=== PATIENT | male | born 1960 | race Caucasian/White ===

== ENCOUNTER 2016-07-15 13:48 | Emergency (ER) | payer BC ==
[2016-07-15] MEDS ORDERED: ASPIRIN 81 MG TABLET, CHEWABLE PO ONE (14:19)
[2016-07-15] MEDS ORDERED: IPRATROPIUM/ALBUTEROL 0.5-2.5 MG/3 ML AMPUL NEB ONE ×2 (14:19→17:20)
[2016-07-15 15:08] LABS: HEMATOCRIT 41.1 % (37.9-51.0); HEMOGLOBIN 13.4 g/dL (13.5-17.0); HGB HCT DIFFERENCE -0.9; MEAN CORPUSCULAR HEMOGLOBIN 29.5 pg (27.0-33.4); MEAN CORPUSCULAR HGB CONC 32.5 g/dL (32.0-36.0); MEAN CORPUSCULAR VOLUME 91 fl (80-97); RED BLOOD COUNT 4.53 10^6/uL (4.35-5.55); RED CELL DISTRIBUTION WIDTH 14.6 % (11.5-14.0); WHITE BLOOD COUNT 21.1 10^3/uL (4.0-10.5)
--- NOTE | 2016-07-15 15:13 | EKG REPORT ---
SEVERITY:- ABNORMAL ECG - SINUS RHYTHM RIGHT BUNDLE BRANCH BLOCK BORDERLINE INFERIOR Q WAVES : Confirmed by: Emani White MD 15-Jul-2016 15:12:49
[2016-07-15 15:25] LABS: BAND NEUTROPHILS % (MANUAL) 4 % (3-5); BASOPHILS % (MANUAL) 2 % (0-2); EOSINOPHILS % (MANUAL) 2 % (0-6); LYMPHOCYTES % (MANUAL) 8 % (13-45); TOTAL CELLS COUNTED 100
[2016-07-15 15:26] LABS: RBC MORPHOLOGY COMMENT NORMO-CYTIC/CHROMIC
[2016-07-15 15:39] LABS: ALANINE AMINOTRANSFERASE 30 U/L (21-72); ALKALINE PHOSPHATASE 68 U/L (38-126); ANION GAP 10 (5-19); ASPARTATE AMINO TRANSFERASE 21 U/L (17-59); BILIRUBIN,TOTAL 0.6 mg/dL (0.2-1.3); BLOOD UREA NITROGEN 21 mg/dL (7-20); CALCIUM 9.2 mg/dL (8.4-10.2); CARBON DIOXIDE 31 mmol/L (22-30); CHLORIDE 98 mmol/L (98-107); CREATINE KINASE 113 U/L (55-170); CREATININE RESULT 0.96 mg/dL (0.52-1.25); GLUCOSE 91 mg/dL (75-110); POTASSIUM 4.5 mmol/L (3.6-5.0); SODIUM 139.2 mmol/L (137-145); TOTAL PROTEIN 7.2 g/dL (6.3-8.2)
--- NOTE | 2016-07-15 15:40 | ER Document Report ---
ED Respiratory Problem - General Mode of Arrival: Ambulatory Information source: Patient TRAVEL OUTSIDE OF THE [place] IN LAST 30 DAYS: No - HPI Patient complains to provider of: Other - congestion Onset: Yesterday Associated symptoms: Other - See above <MEGA SCHILLING - Last Filed: 07/15/16 16:36> <EDDACONNER - Last Filed: 07/15/16 19:28> - General Chief Complaint: Nasal Congestion Stated Complaint: congestion Notes: Patient is a 55 year old male, with a past medical history including CHF and COPD, who presents to the emergency department complaining of nasal congestion. Patient reports he developed a bad cold last night and complains of cough, nausea, and a sore throat that started today. Patient states that he was in the hospital 6 weeks ago for pneumonia. Patient states that he uses home oxygen when needed and at night, he also has breathing treatments at home but has not used them recently, patient denies any breathing difficulties above his normal conditions. Patient also reports that he broke a fever last night. Patient denies diarrhea, vomiting, chest pain, abdominal pain, and edema. Patient currently wears compression socks and takes 2 water pills. PCP: Dr. Darby Huerta (MEGA SCHILLING) - Related Data Allergies/Adverse Reactions: No Known Allergies Allergy (Verified 07/15/16 14:05) Past Medical History - General Information source: Patient - Social History Smoking Status: Former Smoker - 7 years Chew tobacco use (# tins/day): No Frequency of alcohol use: Occasional Drug Abuse: None Family History: Reviewed & Not Pertinent, CAD, DM, Hypertension Patient has suicidal ideation: No Patient has homicidal ideation: No - Past Medical History Cardiac Medical History: Reports: Hx Congestive Heart Failure, Hx Hypertension Pulmonary Medical History: Reports: Hx COPD Endocrine Medical History: Reports: Hx Diabetes Mellitus Type 2 Past Surgical History: Reports: Hx Orthopedic Surgery, Hx Tonsillectomy <MEGA SCHILLING - Last Filed: 07/15/16 16:36> Review of Systems - Review of Systems Constitutional: See HPI, Fever EENT: See HPI, Nose congestion, Throat pain Cardiovascular: denies: Chest pain, Edema Respiratory: See HPI, Cough Gastrointestinal: See HPI, Nausea. denies: Abdominal pain, Diarrhea, Vomiting Genitourinary: No symptoms reported Male Genitourinary: No symptoms reported Musculoskeletal: No symptoms reported Skin: No symptoms reported Hematologic/Lymphatic: No symptoms reported Neurological/Psychological: No symptoms reported -: Yes All other systems reviewed and negative <MEGA SCHILLING - Last Filed: 07/15/16 16:36> Physical Exam - Vital signs Interpretation: Tachycardic - General General appearance: Appears well, Alert - HEENT Head: Normocephalic, Atraumatic Sinus: Other - congested Pharynx: Erythema. No: Exudate, Other - swelling - Respiratory Respiratory status: No respiratory distress Chest status: Nontender Breath sounds: Decreased air movement - of left side. Right side has decreased expiratory movement Chest palpation: Normal - Cardiovascular Rhythm: Tachycardia Heart sounds: Normal auscultation Murmur: No - Abdominal Inspection: Normal Distension: No distension Bowel sounds: Normal Tenderness: Nontender Organomegaly: No organomegaly - Back Back: Normal, Nontender - Neurological Neuro grossly intact: Yes Cognition: Normal Orientation: AAOx4 [place] Coma Scale Eye Opening: Spontaneous [place] Coma Scale Verbal: Oriented [place] Coma Scale Motor: Obeys Commands Na Coma Scale Total: 15 Speech: Normal - Psychological Associated symptoms: Normal affect, Normal mood - Skin Skin Temperature: Warm Skin Moisture: Dry Skin Color: Normal <MEGA SCHILLING - Last Filed: 07/15/16 16:36> <CONNER BAÑUELOS - Last Filed: 07/15/16 19:28> - Vital signs Vitals: Temp Pulse Resp BP Pulse Ox 98.9 F 103 H 22 H 124/66 86 L 07/15/16 13:59 07/15/16 13:59 07/15/16 13:59 07/15/16 13:59 07/15/16 13:59 (MEGA SCHILLING) (CONNER BAÑUELOS) Course - Laboratory Result Diagrams: 07/15/16 14:40 07/15/16 14:40 <MEGA SCHILLING - Last Filed: 07/15/16 16:36> - Laboratory Result Diagrams: 07/15/16 14:40 07/15/16 14:40 <CONNER BAÑUELOS - Last Filed: 07/15/16 19:28> - Re-evaluation Re-evalutation: 07/15/16 19:11 Patient with history of COPD presents stating that last night he started getting nasal congestion and has a little bit of a cough. He also has a history of CHF. He indicates that he just thought he had the sniffles but his wanted him to be checked out. Patient satting 82-86% on room air when he came in. He does have home oxygen. He does have nebulizers and says that he was not using the nebulizer today. The patient workup is largely unremarkable with exception of an elevated white count. In May when he was admitted for the COPD exacerbation and pneumonia, his white count was elevated at 19,000. The patient is afebrile nontoxic appearing. The chest x-ray was normal. He desats to 85 on room air. Again he does have chronic COPD and he says he feels fine. He is not in respiratory distress. We did give him steroids and 2 breathing treatments. I have counseled him regarding using his be breathing treatments at home. He will also use his oxygen 24-7 at 2L until he feels improved. He has been comfortable in the ED and has been asking to go since he got here. Given his history of COPD, and recent pneumonia, we'll treat him empirically with antibiotics. He will monitor for fevers and return for any worrisome or worsening symptoms. 07/15/16 19:25 07/15/16 19:27 (CONNER BAÑUELOS) - Vital Signs Vital signs: Temp Pulse Resp BP Pulse Ox 98.9 F 103 H 21 H 129/72 H 91 L 07/15/16 13:59 07/15/16 13:59 07/15/16 18:00 07/15/16 15:37 07/15/16 18:00 (MEGA SCHILLING) (CONNER BAÑUELOS) - Laboratory Laboratory results interpreted by me: 07/15/16 07/15/16 14:40 14:40 WBC 21.1 H Hgb 13.4 L RDW 14.6 H Lymphocytes % (Manual) 8 L Abs Neuts (Manual) 17.1 H Abs Basophils (Manual) 0.4 H Carbon Dioxide 31 H BUN 21 H (MEGA SCHILLING) (CONNER BAÑUELOS) Discharge <MEGA SCHILLING - Last Filed: 07/15/16 16:36> <CONNER BAÑUELOS - Last Filed: 07/15/16 19:28> - Discharge Clinical Impression: COPD with exacerbation Sinusitis Qualifiers: Sinusitis location: unspecified location Chronicity: acute Recurrence: non- recurrent Qualified Code(s): J01.90 - Acute sinusitis, unspecified Condition: Stable Disposition: HOME, SELF-CARE Instructions: Sinusitis ([facility]), Chronic Obstructive Lung Disease ([facility]) Additional Instructions: Use your nebulizer treatments every 4 hours as needed for difficulty breathing. His your home oxygen until you are feeling improved. Take the steroids as prescribed and try Flonase to help with sinus congestion. Follow-up to on Sunday. Return to emergency department for fevers, vomiting so not to keep down fluids, difficulty breathing, chest pain, or any other worsening or concerning symptoms. Prescriptions: Amox Tr/Potassium Clavulanate [Augmentin 875-125 mg Tablet] 1 tab PO BID #20 tablet Fluticasone Propionate [Flonase Nasal [place] 50 Mcg/[place] 16 gm] 2 sprays NASL Q12 #1 inhaler Prednisone [Deltasone 20 mg Tablet] 3 tab PO DAILY 5 Days Scribe Attestation: 07/15/16 19:27 I personally performed the services described in the documentation, reviewed and edited the documentation which was dictated to the scribe in my presence, and it accurately records my words and actions. (CONNER BAÑUELOS) Scribe Documentation - Scribe Written by Jayshree:: jayshree Walker, 07/15/16, [id number] acting as scribe for :: Dr Hart <MEGA SCHILLING - Last Filed: 07/15/16 16:36>
[2016-07-15 15:54] LABS: CREATINE KINASE MB 0.87 ng/mL (<4.55); TROPONIN I < 0.012 ng/mL
[2016-07-15] MEDS ORDERED: METHYLPREDNISOLONE INJ 125 MG/2 ML SDV IV ONE (17:19)
[2016-07-15] MEDS ORDERED: AMOXICILLIN TR/POT CLAVULANATE 500-125 MG TAB PO ONE (19:25)
[2016-07-15 19:47] VITALS: BP 135/77
== END 2016-07-15 19:52 | disposition home or self-care (01) ==
LOC: ER 13:48
DX: J44.1 Chronic obstructive pulmonary disease with (acute) exacerbation (principal); J01.90 Acute sinusitis, unspecified; I50.9 Heart failure, unspecified; I11.0 Hypertensive heart disease with heart failure; J44.9 Chronic obstructive pulmonary disease, unspecified; E11.9 Type 2 diabetes mellitus without complications; Z87.891 Personal history of nicotine dependence
CPT/HCPCS: 93005; 94640 ×2; 99285; 96374; 36415; 82553; 82550; 85025; 80053; 84484; 83880; 71010; 93010; J2930; J7620

== ENCOUNTER 2017-06-29 15:12 | Inpatient (IN) | payer BC ==
[2017-06-29 17:02] LABS: ABSOLUTE BASOPHILS # (AUTO) 0.1 10^3/uL (0.0-0.2); ABSOLUTE EOSINOPHILS # (AUTO) 0.1 10^3/uL (0.0-0.6); ABSOLUTE LYMPHOCYTES (AUTO) 2.2 10^3/uL (0.5-4.7); ABSOLUTE MONOCYTES (AUTO) 0.9 10^3/uL (0.1-1.4); ABSOLUTE NEUT (AUTO) 7.1 10^3/uL (1.7-8.2); BASOPHILS % (AUTO) 0.5 % (0-2); EOSINOPHILS % (AUTO) 1.4 % (0-6); HEMATOCRIT 37.9 % (37.9-51.0); HEMOGLOBIN 12.3 g/dL (13.5-17.0); LYMPHOCYTES % (AUTO) 21.1 % (13-45); MEAN CORPUSCULAR HEMOGLOBIN 29.4 pg (27.0-33.4); MEAN CORPUSCULAR HGB CONC 32.5 g/dL (32.0-36.0); MEAN CORPUSCULAR VOLUME 90 fl (80-97); MONOCYTES % (AUTO) 8.8 % (3-13); PLATELET COUNT 336 10^3/uL (150-450); RED BLOOD COUNT 4.19 10^6/uL (4.35-5.55); RED CELL DISTRIBUTION WIDTH 14.4 % (11.5-14.0); SEGMENTED NEUTROPHILS % (AUTO) 68.2 % (42-78); TOTAL CELLS COUNTED % (AUTO) 100 %; WHITE BLOOD COUNT 10.4 10^3/uL (4.0-10.5)
--- NOTE | 2017-06-29 17:04 | ER Document Report ---
ED General - General Chief Complaint: Breathing Difficulty Stated Complaint: DIFFICULTY BREATHING Time Seen by Provider: 06/29/17 15:57 Notes: Patient with increased cough, shortness of breath and difficulty breathing. Followed by outpatient doctor for the last several days. Started on Levaquin but not getting better. Went to the office 2 days in a row and got shots of Rocephin. Still having increased work of breathing, wheezing and shortness of breath. Patient states he has intermittent fevers. Has a history of congestive heart failure as well. Primary care doctor was concerned this could be CHF versus pneumonia. Sent here for evaluation. TRAVEL OUTSIDE OF THE [place] IN LAST 30 DAYS: No - HPI Onset: Last week - Related Data Allergies/Adverse Reactions: No Known Allergies Allergy (Verified 06/29/17 15:13) Past Medical History - General Information source: Patient - Social History Smoking Status: Former Smoker Frequency of alcohol use: None Drug Abuse: None Lives with: Family, Spouse/Significant other Family History: Reviewed & Not Pertinent, CAD, DM, Hypertension - Past Medical History Cardiac Medical History: Reports: Hx Congestive Heart Failure, Hx Hypertension Denies: Hx Coronary Artery Disease Pulmonary Medical History: Reports: Hx COPD Endocrine Medical History: Reports: Hx Diabetes Mellitus Type 2 Renal/ Medical History: Denies: Hx Peritoneal Dialysis Past Surgical History: Reports: Hx Orthopedic Surgery, Hx Tonsillectomy Review of Systems - Review of Systems Constitutional: Fever, Weakness EENT: No symptoms reported Cardiovascular: Palpitations Respiratory: Cough, Short of breath, Wheezing Gastrointestinal: No symptoms reported Genitourinary: No symptoms reported Male Genitourinary: No symptoms reported Musculoskeletal: No symptoms reported Skin: No symptoms reported Hematologic/Lymphatic: No symptoms reported Neurological/Psychological: Other - Peripheral neuropathy Physical Exam - Vital signs Vitals: Pulse Ox 93 06/29/17 15:13 Interpretation: Tachycardic, Tachypneic - General General appearance: Appears well, Alert Notes: Obese individual - HEENT Head: Normocephalic, Atraumatic Eyes: Normal Pupils: PERRL - Respiratory Respiratory status: No respiratory distress Chest status: Nontender Breath sounds: Nonproductive cough, Wheezing Chest palpation: Normal - Cardiovascular Rhythm: Tachycardia Heart sounds: Normal auscultation Murmur: No - Abdominal Inspection: Normal Distension: No distension Bowel sounds: Normal Tenderness: Nontender Organomegaly: No organomegaly - Back Back: Normal, Nontender - Extremities General upper extremity: Normal inspection, Nontender, Normal color, Normal ROM , Normal temperature General lower extremity: Normal inspection, Nontender, Edema, Normal color, Normal ROM, Normal temperature, Normal weight bearing, Other - 2+ pitting edema bilateral lower extremities. No: Allen's sign - Neurological Neuro grossly intact: Yes Cognition: Normal Orientation: AAOx4 [place] Coma Scale Eye Opening: Spontaneous [place] Coma Scale Verbal: Oriented Na Coma Scale Motor: Obeys Commands Na Coma Scale Total: 15 Speech: Normal Motor strength normal: LUE, RUE, LLE, RLE Sensory: Normal - Psychological Associated symptoms: Normal affect, Normal mood - Skin Skin Temperature: Warm Skin Moisture: Dry Skin Color: Normal Course - Re-evaluation Re-evalutation: 06/29/17 19:21 Patient with worsening cough and shortness of breath. Already on antibiotics. Will give IV antibiotics, IV steroids, breathing treatments. Will get CTA of the chest. Consulted hospitalist who agrees with admit at this time. - Vital Signs Vital signs: Temp Pulse Resp BP Pulse Ox 98.7 F 107 H 26 H 101/66 94 06/29/17 15:24 06/29/17 15:24 06/29/17 17:01 06/29/17 17:01 06/29/17 17:01 - Laboratory Result Diagrams: 06/29/17 16:11 06/29/17 16:11 Laboratory results interpreted by ky: 06/29/17 06/29/17 16:11 16:11 RBC 4.19 L Hgb 12.3 L RDW 14.4 H Chloride 96 L Carbon Dioxide 37 H BUN 23 H Total Bilirubin < 0.1 L AST 16 L - EKG Interpretation by Mi EKG shows normal: Sinus rhythm, Intervals, QRS Complexes, ST-T Waves Rate: Tachycardia Discharge - Discharge Clinical Impression: Acute bronchitis Qualifiers: Bronchitis organism: unspecified organism Qualified Code(s): J20.9 - Acute bronchitis, unspecified Condition: Good Disposition: ADMITTED INPATIENT Admitting Provider: Hospitalist - Dr. Jackson
[2017-06-29 17:07] LABS: ALANINE AMINOTRANSFERASE 22 U/L (21-72); ALBUMIN 3.6 g/dL (3.5-5.0); ALKALINE PHOSPHATASE 61 U/L (38-126); ANION GAP 7 (5-19); ASPARTATE AMINO TRANSFERASE 16 U/L (17-59); BLOOD UREA NITROGEN 23 mg/dL (7-20); CALCIUM 8.6 mg/dL (8.4-10.2); CARBON DIOXIDE 37 mmol/L (22-30); CHLORIDE 96 mmol/L (98-107); GLUCOSE 95 mg/dL (75-110); POTASSIUM 4.3 mmol/L (3.6-5.0); SODIUM 139.5 mmol/L (137-145); TOTAL PROTEIN 6.7 g/dL (6.3-8.2)
[2017-06-29 17:09] LABS: BILIRUBIN,TOTAL < 0.1 mg/dL (0.2-1.3)
--- NOTE | 2017-06-29 17:24 | RADIOLOGY REPORT (SQ) ---
EXAM DESCRIPTION: CHEST SINGLE VIEW COMPLETED DATE/TIME: 06/29/2017 5:16 pm REASON FOR STUDY: difficulty breathing COMPARISON: 07/15/2016 EXAM PARAMETERS: NUMBER OF VIEWS: One view. TECHNIQUE: Single frontal radiographic view of the chest acquired. RADIATION DOSE: NA LIMITATIONS: None. FINDINGS: LUNGS AND PLEURA: Left perihilar atelectasis. Right basilar atelectasis. MEDIASTINUM AND HILAR STRUCTURES: No masses. Contour normal. HEART AND VASCULAR STRUCTURES: Heart normal in size. Normal vasculature. BONES: No acute findings. HARDWARE: None in the chest. OTHER: No other significant finding. IMPRESSION: Atelectasis. TECHNICAL DOCUMENTATION: JOB ID: [id number] [employer]- All Rights Reserved
[2017-06-29] MEDS ORDERED: IPRATROPIUM/ALBUTEROL 0.5-2.5 MG/3 ML AMPUL NEB ONE (17:35)
[2017-06-29 17:39] LABS: APPEARANCE,URINE CLEAR; BILIRUBIN,URINE NEGATIVE (NEGATIVE); COLOR,URINE YELLOW; GLUCOSE, URINE NEGATIVE (NEGATIVE); KETONES,URINE NEGATIVE (NEGATIVE); LEUKOCYTE ESTERASE,URINE NEGATIVE (NEGATIVE); NITRITE,URINE NEGATIVE (NEGATIVE); PROTEIN,URINE NEGATIVE (NEGATIVE); URINE SPECIFIC GRAVITY 1.005; UROBILINOGEN,URINE NEGATIVE mg/dL (<2.0)
[2017-06-29 17:57] LABS: NT PRO BNP 60 pg/mL (5-900)
[2017-06-29 18:00] LABS: TROPONIN I < 0.012 ng/mL
--- NOTE | 2017-06-29 18:18 | EKG REPORT ---
SEVERITY:- ABNORMAL ECG - SINUS TACHYCARDIA RBBB AND LPFB PROBABLE INFERIOR INFARCT, AGE INDETERMINATE : Confirmed by: Rad Roche MD 29-Jun-2017 18:17:20
[2017-06-29] MEDS ORDERED: CEFTRIAXONE 2 GM/D5W RTU 2 GM/50 ML RTUPB IV ONE (19:17)
[2017-06-29] MEDS ORDERED: METHYLPREDNISOLONE INJ 125 MG/2 ML SDV IV ONE (19:17)
[2017-06-29] MEDS ORDERED: AZITHROMYCIN INJ 500 MG VIAL IV ONE (19:18)
[2017-06-29 20:12] LABS: A TYPE INFLUENZA AG NEGATIVE (NEGATIVE); B INFLUENZA AG NEGATIVE (NEGATIVE)
--- NOTE | 2017-06-29 20:44 | RADIOLOGY REPORT (SQ) ---
EXAM DESCRIPTION: CTA CHEST COMPLETED DATE/TIME: 06/29/2017 8:18 pm REASON FOR STUDY: sob, tachycardia COMPARISON: Chest radiograph CT 05/26/2016 TECHNIQUE: CT scan of the chest performed using helical scanning technique with dynamic intravenous contrast injection. Images reviewed with lung, soft tissue and bone windows. Reconstructed coronal and sagittal MPR images reviewed. Additional 3 dimensional post-processing performed to develop Maximal Intensity Projection images ([place] P). All images stored on PACS. All CT scanners at this facility use dose modulation, iterative reconstruction, and/or weight based d osing when appropriate to reduce radiation dose to as low as reasonably achievable (ALARA). [facility]: Dose Right [facility]: CareDose [facility]: Dose Right [facility]: Teradose 4D [facility]: Haptik CONTRAST TYPE AND DOSE: contrast/concentration: Isovue 370.00 mg/ml; Total Contrast Delivered: 157.0 ml; Total Saline Delivered: 140.0 ml Contrast bolus optimized for the pulmonary arteries. Not diagnostic for the aorta. RENAL FUNCTION: Creatinine 1.2 RADIATION DOSE: CT Rad equipment meets quality standard of care and radiation dose reduction techniq ues were employed. CTDIvol: 51.9 - 93.7 mGy. DLP: 3876 mGy-cm. . LIMITATIONS: None. FINDINGS: LUNGS AND PLEURA: Minimal opacities at the lung bases. Similar to previous. AORTA AND GREAT VESSELS: No aneurysm. Contrast bolus not optimized for the aorta. HEART: No pericardial effusion. No significant coronary artery calcifications. PULMONARY ARTERIES: No emboli visualized in the main pulmonary arteries or the segmental branches. HILAR AND MEDIASTINAL STRUCTURES: No identified masses or abnormal nodes. HARDWARE: None in the chest. UPPER ABDOMEN: Hepatic cysts. THYROID AND OTHER SOFT TISSUES: No masses. No adenopathy. BONES: No acute or significant finding. 3D MIPS: Confirm above findings. OTHER: No other significant finding. IMPRESSION: No pulmonary emboli. Basilar opacities similar to previous in 2016. Hepatic cysts stable. COMMENT: Quality ID # [id number]: Final reports with documentation of one or more dose reduction techniques (e.g., Automated exposure control, adjustment of the mA and/or kV according to patient size, use of iterative reconstruction technique) TECHNICAL DOCUMENTATION: JOB ID: [id number] [employer]- All Rights Reserved
[2017-06-29] MEDS ORDERED: ACETAMINOPHEN 325 MG TABLET PO PRN (21:25)
[2017-06-29] MEDS ORDERED: LEVALBUTEROL HCL NEB 1.25 MG/3 ML AMPUL NEB PRN (21:25)
[2017-06-29] MEDS: CARVEDILOL 3.125 MG TABLET PO SCH (22:38)
[2017-06-29] MEDS: GUAIFENESIN 600 MG TABLET.SA PO SCH (22:39)
[2017-06-29] MEDS: GABAPENTIN 300 MG CAPSULE PO SCH (22:39)
[2017-06-30] MEDS ORDERED: METHYLPREDNISOLONE INJ 40 MG/1 ML SDV IV SCH (03:00)
--- NOTE | 2017-06-30 03:21 | PDOC H&P ---
History of Present Illness Admission Date/PCP: 06/29/2017 History of Present Illness: DOLORES TOMAS is a 56 year old male with past medical history of chronic hypoxemic respiratory failure, congestive heart failure, COPD, hypertension, diabetes mellitus type 2 diet controlled, morbid obesity who presents to the emergency department with shortness of breath. Patient reports she has been to his primary provider 3 times this week for congestion and difficulty breathing. He reports that he was placed on an antibiotic and given steroids in the form shots , but he reveals he is getting worse. He reports his sputum is productive of yellow white sputum. He reports that he has lower extremity swelling but no more than normal. He does report that overall his weight is up since I last saw him approximately [address] in the emergency department reveals no pulmonary embolus but does show bilateral lower lobe pneumonia. For the hospital service for admission Past Medical History Cardiac Medical History: Reports: Congestive Heart Failure, Hyperlipidema, Hypertension Denies: Coronary Artery Disease Pulmonary Medical History: Reports: Chronic Obstructive Pulmonary Disease (COPD) , Respiratory Failure Endocrine Medical History: Reports: Diabetes Mellitus Type 2, Obesity Past Surgical History Past Surgical History: Reports: Orthopedic Surgery, Tonsillectomy Social History Lives with: Family, Spouse/Significant other Smoking Status: Former Smoker Frequency of Alcohol Use: Occasional Hx Recreational Drug Use: No Hx Prescription Drug Abuse: No - Advance Directive Resuscitation Status: Full Code Surrogate healthcare decision maker:: Barbara Tomas, Family History Family History: CAD, DM, Hypertension Parental Family History Reviewed: Yes Children Family History Reviewed: Yes Sibling(s) Family History Reviewed.: Yes Medication/Allergy Allergies/Adverse Reactions: No Known Allergies Allergy (Verified 06/29/17 15:13) Review of Systems Constitutional: PRESENT: chills, fatigue, headache(s), weight gain. ABSENT: fever(s), weight loss Eyes: ABSENT: visual disturbances Ears: ABSENT: hearing changes Cardiovascular: ABSENT: chest pain, dyspnea on exertion, edema, orthropnea, palpitations Respiratory: PRESENT: cough, dyspnea, sputum. ABSENT: hemoptysis Gastrointestinal: PRESENT: dysphagia, heartburn. ABSENT: abdominal pain, constipation, diarrhea, hematemesis, hematochezia, melena, nausea, vomiting Genitourinary: ABSENT: dysuria, hematuria Musculoskeletal: ABSENT: joint swelling Integumentary: ABSENT: rash, wounds Neurological: ABSENT: abnormal gait, abnormal speech, confusion, dizziness, focal weakness, syncope Psychiatric: ABSENT: anxiety, depression, homidical ideation, suicidal ideation Endocrine: ABSENT: cold intolerance, heat intolerance, polydipsia, polyuria Hematologic/Lymphatic: ABSENT: easy bleeding, easy bruising Physical Exam Vital Signs: Temp Pulse Resp BP Pulse Ox 98.7 F 107 H 26 H 101/66 94 06/29/17 15:24 06/29/17 15:24 06/29/17 17:01 06/29/17 17:01 06/29/17 17:01 Intake & Output 06/28/17 06/29/17 06/30/17 06:59 06:59 06:59 Weight 167.6 kg General appearance: PRESENT: mild distress, morbidly obese, well-developed Head exam: PRESENT: atraumatic, normocephalic Eye exam: PRESENT: conjunctiva pink, EOMI, PERRLA. ABSENT: scleral icterus Ear exam: PRESENT: normal external ear exam Mouth exam: PRESENT: moist, tongue midline Neck exam: ABSENT: JVD, lymphadenopathy, thyromegaly, tracheal deviation Respiratory exam: PRESENT: rhonchi, symmetrical, unlabored. ABSENT: accessory muscle use, rales, tachypnea, wheezes Cardiovascular exam: PRESENT: RRR, +S1, +S2. ABSENT: diastolic murmur, rubs, systolic murmur Pulses: PRESENT: normal dorsalis pedis pul Vascular exam: PRESENT: normal capillary refill GI/Abdominal exam: PRESENT: distended, normal bowel sounds, soft. ABSENT: firm , guarding, mass, Reyes's sign, organolmegaly, rebound, rigid, tenderness Rectal exam: PRESENT: deferred Extremities exam: PRESENT: clubbing, full ROM, +1 edema. ABSENT: calf tenderness Neurological exam: PRESENT: alert, awake, oriented to person, oriented to place , oriented to time, oriented to situation, CN II-XII grossly intact. ABSENT: motor sensory deficit Psychiatric exam: PRESENT: appropriate affect, normal mood. ABSENT: homicidal ideation, suicidal ideation Skin exam: PRESENT: dry, intact, warm. ABSENT: cyanosis, rash Results Laboratory Results: 06/29/17 16:11 06/29/17 16:11 06/29/17 06/29/17 06/29/17 16:11 16:11 16:11 WBC 10.4 RBC 4.19 L Hgb 12.3 L Hct 37.9 MCV 90 MCH 29.4 MCHC 32.5 RDW 14.4 H Plt Count 336 Seg Neutrophils % 68.2 Lymphocytes % 21.1 Monocytes % 8.8 Eosinophils % 1.4 Basophils % 0.5 Absolute Neutrophils 7.1 Absolute Lymphocytes 2.2 Absolute Monocytes 0.9 Absolute Eosinophils 0.1 Absolute Basophils 0.1 Sodium 139.5 Potassium 4.3 Chloride 96 L Carbon Dioxide 37 H Anion Gap 7 BUN 23 H Creatinine 1.20 Est GFR ( Amer) > 60 Est GFR (Non-Af Amer) > 60 Glucose 95 Lactic Acid 1.2 Calcium 8.6 Total Bilirubin < 0.1 L AST 16 L ALT 22 Alkaline Phosphatase 61 Total Protein 6.7 Albumin 3.6 Urine Color Urine Appearance Urine pH Ur Specific [place] Urine Protein Urine Glucose (UA) Urine Ketones Urine Blood Urine Nitrite Ur Leukocyte Esterase Urine WBC (Auto) Urine RBC (Auto) 06/29/17 17:17 WBC RBC Hgb Hct MCV MCH MCHC RDW Plt Count Seg Neutrophils % Lymphocytes % Monocytes % Eosinophils % Basophils % Absolute Neutrophils Absolute Lymphocytes Absolute Monocytes Absolute Eosinophils Absolute Basophils Sodium Potassium Chloride Carbon Dioxide Anion Gap BUN Creatinine Est GFR ( Amer) Est GFR (Non-Af Amer) Glucose Lactic Acid Calcium Total Bilirubin AST ALT Alkaline Phosphatase Total Protein Albumin Urine Color YELLOW Urine Appearance CLEAR Urine pH 5.0 Ur Specific [place] 1.005 Urine Protein NEGATIVE Urine Glucose (UA) NEGATIVE Urine Ketones NEGATIVE Urine Blood NEGATIVE Urine Nitrite NEGATIVE Ur Leukocyte Esterase NEGATIVE Urine WBC (Auto) 1 Urine RBC (Auto) 1 06/29/17 16:11 Troponin I < 0.012 NT-Pro-B Natriuret Pep 60 Impressions: Chest X-Ray 06/29/17 16:54 IMPRESSION: Atelectasis. Assessment & Plan - Diagnosis (1) COPD exacerbation Is this a current diagnosis for this admission?: Yes Plan: Place patient on scheduled nebulized treatments and re-evaluate for improvement. PRN Xopenex Place patient on IV Solu-Medrol Obtain sputum culture (2) Community acquired pneumonia Qualifiers: Laterality: unspecified laterality Qualified Code(s): J18.9 - Pneumonia, unspecified organism Is this a current diagnosis for this admission?: Yes Plan: Place patient on treatment for community-acquired pneumonia with Rocephin and azithromycin. Obtain sputum culture (3) Acute and chronic respiratory failure with hypoxia Is this a current diagnosis for this admission?: Yes Plan: Patient chronically uses 2 L of oxygen at home and is currently requiring 3-4 (4) Diabetes mellitus, type II Qualifiers: Diabetes mellitus complication status: with kidney complications Diabetes mellitus complication detail: with microalbuminuria Diabetes mellitus fpc insulin use: without terminal makeup operator use Qualified Code(s): E11.29 - Type 2 diabetes mellitus with other diabetic kidney complication Is this a current diagnosis for this admission?: Yes Plan: Patient has diet-controlled diabetes mellitus and has been taken off of metformin for him (5) Hyperlipidemia LDL goal <70 Is this a current diagnosis for this admission?: Yes (6) Hypertension Qualifiers: Hypertension type: essential hypertension Qualified Code(s): I10 - Essential (primary) hypertension Is this a current diagnosis for this admission?: Yes (7) Morbid obesity Is this a current diagnosis for this admission?: Yes - Time Time Spent: 30 to 50 Minutes Medications reviewed and adjusted accordingly: Yes - Inpatient Certification Based on my medical assessment, after consideration of the patient's comorbidities, presenting symptoms, or acuity I expect that the services needed warrant INPATIENT care.: Yes I certify that my determination is in accordance with my understanding of Medicare's requirements for reasonable and necessary INPATIENT services [42 CFR 412.3e].: Yes Medical Necessity: Need for Nebulizer Therapy and Monitoring of Response, Need for IV Antibiotics Post Hospital Care: D/C Water Regulator And Valve Repairer Documentation
[2017-06-30 05:18] LABS: ABSOLUTE BASOPHILS # (AUTO) 0.1 10^3/uL (0.0-0.2); ABSOLUTE LYMPHOCYTES (AUTO) 0.7 10^3/uL (0.5-4.7); ABSOLUTE MONOCYTES (AUTO) 0.1 10^3/uL (0.1-1.4); ABSOLUTE NEUT (AUTO) 9.9 10^3/uL (1.7-8.2); BASOPHILS % (AUTO) 0.6 % (0-2); HEMATOCRIT 39.4 % (37.9-51.0); HEMOGLOBIN 12.9 g/dL (13.5-17.0); LYMPHOCYTES % (AUTO) 6.3 % (13-45); MEAN CORPUSCULAR HEMOGLOBIN 29.7 pg (27.0-33.4); MEAN CORPUSCULAR HGB CONC 32.8 g/dL (32.0-36.0); MEAN CORPUSCULAR VOLUME 91 fl (80-97); MONOCYTES % (AUTO) 1.3 % (3-13); PLATELET COUNT 325 10^3/uL (150-450); RED BLOOD COUNT 4.34 10^6/uL (4.35-5.55); RED CELL DISTRIBUTION WIDTH 14.2 % (11.5-14.0); SEGMENTED NEUTROPHILS % (AUTO) 91.8 % (42-78); TOTAL CELLS COUNTED % (AUTO) 100 %; WHITE BLOOD COUNT 10.8 10^3/uL (4.0-10.5)
[2017-06-30 05:48] LABS: ANION GAP 9 (5-19); BLOOD UREA NITROGEN 23 mg/dL (7-20); CALCIUM 8.9 mg/dL (8.4-10.2); CARBON DIOXIDE 35 mmol/L (22-30); CHLORIDE 98 mmol/L (98-107); GLUCOSE 178 mg/dL (75-110); POTASSIUM 5.2 mmol/L (3.6-5.0); SODIUM 141.9 mmol/L (137-145)
[2017-06-30] MEDS: LANSOPRAZOLE 15 MG TAB.RAP.DR PO SCH (07:22)
[2017-06-30] MEDS: GABAPENTIN 300 MG CAPSULE PO SCH ×3 (07:22→20:22)
[2017-06-30] MEDS: IPRATROPIUM/ALBUTEROL 0.5-2.5 MG/3 ML AMPUL NEB SCH ×4 (08:28→19:44)
--- NOTE | 2017-06-30 09:28 | PDOC PROGRESS REPORT ---
Subjective Progress Note for:: 06/30/17 Subjective:: Patient relates that he came to the hospital because his doctor asked him to since he has been at his office 3 times this past week. He admits having a history of sleep apnea but does not use the CPAP machine. He wants to go home. Reason For Visit: FAILURE OF OUTPATIENT THERAPY, PNEUMONIA, COPD Physical Exam Vital Signs: Temp Pulse Resp BP Pulse Ox 98.7 F 107 H 17 134/85 H 92 06/29/17 15:24 06/29/17 15:24 06/30/17 07:53 06/30/17 07:53 06/30/17 07:53 General appearance: PRESENT: no acute distress, morbidly obese Head exam: PRESENT: atraumatic, normocephalic Eye exam: PRESENT: conjunctiva pink, EOMI, PERRLA Ear exam: PRESENT: normal external ear exam Mouth exam: PRESENT: moist Teeth exam: PRESENT: poor dentation Neck exam: PRESENT: full ROM. ABSENT: JVD, tenderness Respiratory exam: PRESENT: clear to auscultation benito Cardiovascular exam: PRESENT: RRR. ABSENT: systolic murmur Vascular exam: PRESENT: normal capillary refill GI/Abdominal exam: PRESENT: normal bowel sounds, soft. ABSENT: tenderness Extremities exam: PRESENT: full ROM, pedal edema, +2 edema. ABSENT: joint swelling Neurological exam: PRESENT: alert, awake, oriented to person, oriented to place , oriented to time, CN II-XII grossly intact - Appears to be upset since still hospitalized. Argumentative Psychiatric exam: PRESENT: other Results Laboratory Results: 06/30/17 05:05 06/30/17 05:05 06/30/17 06/30/17 05:05 05:05 WBC 10.8 H RBC 4.34 L Hgb 12.9 L Hct 39.4 MCV 91 MCH 29.7 MCHC 32.8 RDW 14.2 H Plt Count 325 Seg Neutrophils % 91.8 H Lymphocytes % 6.3 L Monocytes % 1.3 L Eosinophils % 0.0 Basophils % 0.6 Absolute Neutrophils 9.9 H Absolute Lymphocytes 0.7 Absolute Monocytes 0.1 Absolute Eosinophils 0.0 Absolute Basophils 0.1 Sodium 141.9 Potassium 5.2 H Chloride 98 Carbon Dioxide 35 H Anion Gap 9 BUN 23 H Creatinine 0.91 Est GFR ( Amer) > 60 Est GFR (Non-Af Amer) > 60 Glucose 178 H Calcium 8.9 Impressions: Chest X-Ray 06/29/17 16:54 IMPRESSION: Atelectasis. Chest/Abdomen CTA 06/29/17 19:19 IMPRESSION: No pulmonary emboli. Basilar opacities similar to previous in 2016. Hepatic cysts stable. Assessment & Plan - Diagnosis (1) Acute and chronic respiratory failure with hypoxia Is this a current diagnosis for this admission?: Yes Plan: Improved. Patient reluctant to use BiPAP (2) COPD exacerbation Is this a current diagnosis for this admission?: Yes Plan: Will decrease frequency of IV steroids. To discontinue Rocephin and Zithromax IV. To place patient on Zithromax oral (3) Acute congestive heart failure Qualifiers: Congestive heart failure type: diastolic Qualified Code(s): I50.31 - Acute diastolic (congestive) heart failure Is this a current diagnosis for this admission?: Yes Plan: . To discontinue Lasix p.o. and placed on IV. Suspect pulmonary hypertension (4) Community acquired pneumonia Qualifiers: Laterality: unspecified laterality Qualified Code(s): J18.9 - Pneumonia, unspecified organism Is this a current diagnosis for this admission?: No Plan: Ruled out. Opacity is demonstrated in chest x-ray are similar to [address] of the chest (5) Diabetes mellitus, type II Is this a current diagnosis for this admission?: Yes Plan: Continue present management (6) Sleep apnea Qualifiers: Sleep apnea type: obstructive Qualified Code(s): G47.33 - Obstructive sleep apnea (adult) (pediatric) Is this a current diagnosis for this admission?: Yes Plan: Patient does not use CPAP and likely major contributor to his presentation
[2017-06-30] MEDS ORDERED: FUROSEMIDE 40 MG TABLET PO SCH (10:00)
[2017-06-30] MEDS ORDERED: CEFTRIAXONE 1 GM/D5W RTU 1 GM/50 ML RTUPB IV SCH (10:00)
[2017-06-30] MEDS ORDERED: LISINOPRIL 10 MG TABLET PO SCH (10:00)
[2017-06-30] MEDS: ENOXAPARIN SODIUM INJ 40 MG/0.4 ML DISP.SYRIN SUBCUT SCH (10:50)
[2017-06-30] MEDS: GUAIFENESIN 600 MG TABLET.SA PO SCH ×2 (10:51→20:22)
[2017-06-30] MEDS: CARVEDILOL 3.125 MG TABLET PO SCH ×2 (10:51→23:52)
[2017-06-30] MEDS ORDERED: FUROSEMIDE INJ/PF 20 MG/2 ML SDV IV ONE (11:00)
[2017-06-30] MEDS ORDERED: FUROSEMIDE INJ/PF 40 MG/4 ML SDV IV ONE (12:00)
[2017-06-30] MEDS: METHYLPREDNISOLONE INJ 40 MG/1 ML SDV IV SCH ×2 (14:09→20:22)
[2017-06-30] MEDS: AZITHROMYCIN 250 MG TABLET PO SCH (17:43)
[2017-06-30] MEDS ORDERED: AZITHROMYCIN 500 MG in DEXTROSE 5%-WATER 250 ML IV SCH (18:00)
[2017-06-30] MEDS: ACETAMINOPHEN WITH CODEINE #3 TABLET PO PRN (19:31)
[2017-06-30] MEDS ORDERED: FUROSEMIDE INJ/PF 40 MG/4 ML SDV IV SCH (22:00)
[2017-06-30] MEDS ORDERED: FUROSEMIDE INJ/PF 20 MG/2 ML SDV IV SCH (22:00)
[2017-07-01] MEDS: LANSOPRAZOLE 15 MG TAB.RAP.DR PO SCH (05:38)
[2017-07-01] MEDS: GABAPENTIN 300 MG CAPSULE PO SCH ×3 (05:39→22:47)
[2017-07-01] MEDS: METHYLPREDNISOLONE INJ 40 MG/1 ML SDV IV SCH (05:39)
[2017-07-01 06:58] LABS: ANION GAP 10 (5-19); BLOOD UREA NITROGEN 33 mg/dL (7-20); CALCIUM 9.2 mg/dL (8.4-10.2); CARBON DIOXIDE 35 mmol/L (22-30); CHLORIDE 98 mmol/L (98-107); GLUCOSE 142 mg/dL (75-110); MAGNESIUM 2.1 mg/dL (1.6-2.3); POTASSIUM 5.3 mmol/L (3.6-5.0); SODIUM 143.4 mmol/L (137-145)
[2017-07-01] MEDS: IPRATROPIUM/ALBUTEROL 0.5-2.5 MG/3 ML AMPUL NEB SCH (08:30)
[2017-07-01] MEDS ORDERED: SODIUM POLYSTYRENE SULFONATE 15 GM/60 ML PO ONE (09:00)
[2017-07-01] MEDS: CARVEDILOL 3.125 MG TABLET PO SCH ×2 (09:23→22:47)
[2017-07-01] MEDS: GUAIFENESIN 600 MG TABLET.SA PO SCH ×2 (09:24→22:41)
[2017-07-01] MEDS: ENOXAPARIN SODIUM INJ 40 MG/0.4 ML DISP.SYRIN SUBCUT SCH (09:24)
[2017-07-01] MEDS ORDERED: PREDNISONE 20 MG TABLET PO SCH (10:00)
--- NOTE | 2017-07-01 10:32 | PDOC PROGRESS REPORT ---
Subjective Progress Note for:: 07/01/17 Subjective:: Patient does not voice any concerns however he does not state whether he is feeling better or not. Respiratory therapy reports that patient had been refusing consistently BiPAP as well as nebulizer treatment. The same is reported by nurse Review of systems All organ systems evaluated and negative All laboratories and significant diagnostics have been reviewed Reason For Visit: FAILURE OF OUTPATIENT THERAPY, PNEUMONIA, COPD Physical Exam Vital Signs: Temp Pulse Resp BP Pulse Ox 97.3 F 101 H 20 102/63 88 L 07/01/17 07:58 07/01/17 07:58 07/01/17 07:58 07/01/17 07:58 07/01/17 07:58 Intake & Output 06/30/17 07/01/17 07/02/17 06:59 06:59 06:59 Intake Total 880 Output Total 2100 Balance -1220 Weight 168.1 kg General appearance: PRESENT: no acute distress, morbidly obese Head exam: PRESENT: atraumatic, normocephalic Eye exam: PRESENT: EOMI, PERRLA Ear exam: PRESENT: normal external ear exam Mouth exam: PRESENT: moist Neck exam: PRESENT: full ROM. ABSENT: JVD, tenderness Respiratory exam: PRESENT: clear to auscultation benito Cardiovascular exam: PRESENT: RRR. ABSENT: diastolic murmur, systolic murmur Vascular exam: PRESENT: normal capillary refill GI/Abdominal exam: PRESENT: normal bowel sounds, soft. ABSENT: tenderness Extremities exam: PRESENT: pedal edema. ABSENT: joint swelling Musculoskeletal exam: PRESENT: full ROM Neurological exam: PRESENT: alert, awake, oriented to person, oriented to place , oriented to time, CN II-XII grossly intact Psychiatric exam: PRESENT: appropriate affect, normal mood Results Laboratory Results: 06/30/17 05:05 07/01/17 05:26 07/01/17 05:26 Sodium 143.4 Potassium 5.3 H Chloride 98 Carbon Dioxide 35 H Anion Gap 10 BUN 33 H Creatinine 0.98 Est GFR ( Amer) > 60 Est GFR (Non-Af Amer) > 60 Glucose 142 H Calcium 9.2 Magnesium 2.1 Impressions: Chest X-Ray 06/29/17 16:54 IMPRESSION: Atelectasis. Chest/Abdomen CTA 06/29/17 19:19 IMPRESSION: No pulmonary emboli. Basilar opacities similar to previous in 2016. Hepatic cysts stable. Assessment & Plan - Diagnosis (1) Acute and chronic respiratory failure with hypoxia Is this a current diagnosis for this admission?: Yes Plan: Stable. Patient reluctant to use BiPAP (2) COPD exacerbation Is this a current diagnosis for this admission?: Yes Plan: To discontinue IV steroids and change to oral.. To add daliresp, advair and spiriva. Continue zithromax (3) Acute congestive heart failure Qualifiers: Congestive heart failure type: diastolic Qualified Code(s): I50.31 - Acute diastolic (congestive) heart failure Is this a current diagnosis for this admission?: Yes Plan: . To discontinue Lasix intravenously. Suspect pulmonary hypertension. Discontinue CHEMA due to hyperkalemia and place on norvasc. Hold diuretic due to increase of BUN (4) Community acquired pneumonia Qualifiers: Laterality: unspecified laterality Qualified Code(s): J18.9 - Pneumonia, unspecified organism Is this a current diagnosis for this admission?: No Plan: Ruled out. Opacity is demonstrated in chest x-ray are similar to [address] of the chest (5) Diabetes mellitus, type II Qualifiers: Diabetes mellitus complication status: with kidney complications Diabetes mellitus complication detail: with microalbuminuria Diabetes mellitus intermediate project manager insulin use: without custodial use Qualified Code(s): E11.29 - Type 2 diabetes mellitus with other diabetic kidney complication; R80.9 - Proteinuria, unspecified; R80.9 - Proteinuria, unspecified Is this a current diagnosis for this admission?: Yes Plan: Continue present management (6) Sleep apnea Qualifiers: Sleep apnea type: obstructive Qualified Code(s): G47.33 - Obstructive sleep apnea (adult) (pediatric) Is this a current diagnosis for this admission?: Yes Plan: Patient does not use CPAP and likely major contributor to his presentation (7) Hyperkalemia Is this a current diagnosis for this admission?: Yes Plan: Likely due to CHEMA inhibitor therapy. Will discontinue lisinopril. To order a one-time dose of Kayexalate (8) Atelectasis of both lungs Is this a current diagnosis for this admission?: Yes Plan: Chronic finding backdated to 2016 - Time Time Spent with patient: 15-24 minutes Medications reviewed and adjusted accordingly: Yes Anticipated discharge: Home Within: within 48 hours - Inpatient Certification Based on my medical assessment, after consideration of the patient's comorbidities, presenting symptoms, or acuity I expect that the services needed warrant INPATIENT care.: Yes I certify that my determination is in accordance with my understanding of Medicare's requirements for reasonable and necessary INPATIENT services [42 CFR 412.3e].: Yes Medical Necessity: Significant Comorbidiites Make Outpatient Treatment Too Risky , Risk of Complication if Not Cared For in Hospital
[2017-07-01] MEDS: AMLODIPINE BESYLATE 2.5 MG TABLET PO SCH (10:53)
[2017-07-01] MEDS: ROFLUMILAST 500 MCG TABLET PO SCH (10:53)
[2017-07-01] MEDS ORDERED: TIOTROPIUM BROMIDE DPI 5 CAP/KIT (18 MCG/CAP) IH ONE (11:00)
[2017-07-01] MEDS ORDERED: FLUTICASONE/SALMETEROL DISKUS 500-50 MCG/DOSE IH ONE (11:00)
[2017-07-01] MEDS: ACETAMINOPHEN WITH CODEINE #3 TABLET PO PRN ×2 (14:03→22:46)
[2017-07-01] MEDS: AZITHROMYCIN 250 MG TABLET PO SCH (17:41)
[2017-07-01] MEDS: FLUTICASONE/SALMETEROL DISKUS 500-50 MCG/DOSE IH SCH (22:47)
[2017-07-02 04:53] LABS: ABSOLUTE BASOPHILS # (AUTO) 0.1 10^3/uL (0.0-0.2); ABSOLUTE LYMPHOCYTES (AUTO) 1.7 10^3/uL (0.5-4.7); ABSOLUTE MONOCYTES (AUTO) 1.2 10^3/uL (0.1-1.4); ABSOLUTE NEUT (AUTO) 13.2 10^3/uL (1.7-8.2); BASOPHILS % (AUTO) 0.3 % (0-2); HEMATOCRIT 36.9 % (37.9-51.0); HEMOGLOBIN 12.2 g/dL (13.5-17.0); LYMPHOCYTES % (AUTO) 10.4 % (13-45); MEAN CORPUSCULAR HEMOGLOBIN 29.7 pg (27.0-33.4); MEAN CORPUSCULAR HGB CONC 33.2 g/dL (32.0-36.0); MEAN CORPUSCULAR VOLUME 89 fl (80-97); MONOCYTES % (AUTO) 7.6 % (3-13); PLATELET COUNT 326 10^3/uL (150-450); RED BLOOD COUNT 4.13 10^6/uL (4.35-5.55); RED CELL DISTRIBUTION WIDTH 14.3 % (11.5-14.0); SEGMENTED NEUTROPHILS % (AUTO) 81.7 % (42-78); TOTAL CELLS COUNTED % (AUTO) 100 %; WHITE BLOOD COUNT 16.2 10^3/uL (4.0-10.5)
[2017-07-02 05:13] LABS: ANION GAP 7 (5-19); BLOOD UREA NITROGEN 39 mg/dL (7-20); CALCIUM 8.9 mg/dL (8.4-10.2); CARBON DIOXIDE 36 mmol/L (22-30); CHLORIDE 98 mmol/L (98-107); GLUCOSE 104 mg/dL (75-110); MAGNESIUM 2.2 mg/dL (1.6-2.3); POTASSIUM 4.6 mmol/L (3.6-5.0); SODIUM 141.3 mmol/L (137-145)
[2017-07-02] MEDS: LANSOPRAZOLE 15 MG TAB.RAP.DR PO SCH (06:02)
[2017-07-02] MEDS: GABAPENTIN 300 MG CAPSULE PO SCH ×3 (06:02→22:02)
[2017-07-02] MEDS ORDERED: NORMAL SALINE 500 ML IV PRN (08:40)
[2017-07-02] MEDS ORDERED: LEVALBUTEROL HCL NEB 1.25 MG/3 ML AMPUL NEB PRN (09:00)
--- NOTE | 2017-07-02 09:54 | PDOC PROGRESS REPORT ---
Subjective Progress Note for:: 07/02/17 Subjective:: Patient again complains of not wanting to be here. Patient has been advised that he is not ready to be discharged. However is his right to leave AGAINST MEDICAL ADVICE or he can always refuse for him to be admitted. Review of systems All organ systems evaluated and negative All laboratories and significant diagnostics have been reviewed Reason For Visit: FAILURE OF OUTPATIENT THERAPY, PNEUMONIA, COPD Physical Exam Vital Signs: Temp Pulse Resp BP Pulse Ox 97.3 F 106 H 18 115/55 L 92 07/01/17 23:47 07/01/17 23:47 07/01/17 23:47 07/01/17 23:47 07/01/17 23:47 Intake & Output 07/01/17 07/02/17 07/03/17 06:59 06:59 06:59 Intake Total 880 1142 Output Total 2100 Balance -1220 1142 Weight 168.1 kg 168.1 kg General appearance: PRESENT: no acute distress, morbidly obese Head exam: PRESENT: atraumatic, normocephalic Eye exam: PRESENT: conjunctiva pink, EOMI, PERRLA Ear exam: PRESENT: normal external ear exam Mouth exam: PRESENT: moist Neck exam: PRESENT: full ROM - Essentially clear to auscultation with soft basilar crackles. ABSENT: JVD Cardiovascular exam: PRESENT: RRR. ABSENT: diastolic murmur, systolic murmur Vascular exam: PRESENT: normal capillary refill GI/Abdominal exam: PRESENT: normal bowel sounds, soft. ABSENT: tenderness Extremities exam: PRESENT: full ROM, pedal edema, +1 edema Musculoskeletal exam: PRESENT: ambulatory Neurological exam: PRESENT: alert, oriented to person, oriented to place, oriented to time, CN II-XII grossly intact Psychiatric exam: PRESENT: unusual affect Skin exam: PRESENT: normal color Results Laboratory Results: 07/02/17 03:52 07/02/17 03:52 07/02/17 07/02/17 03:52 03:52 WBC 16.2 H RBC 4.13 L Hgb 12.2 L Hct 36.9 L MCV 89 MCH 29.7 MCHC 33.2 RDW 14.3 H Plt Count 326 Seg Neutrophils % 81.7 H Lymphocytes % 10.4 L Monocytes % 7.6 Eosinophils % 0.0 Basophils % 0.3 Absolute Neutrophils 13.2 H Absolute Lymphocytes 1.7 Absolute Monocytes 1.2 Absolute Eosinophils 0.0 Absolute Basophils 0.1 Sodium 141.3 Potassium 4.6 Chloride 98 Carbon Dioxide 36 H Anion Gap 7 BUN 39 H Creatinine 1.05 Est GFR ( Amer) > 60 Est GFR (Non-Af Amer) > 60 Glucose 104 Calcium 8.9 Magnesium 2.2 Impressions: Chest X-Ray 06/29/17 16:54 IMPRESSION: Atelectasis. Chest/Abdomen CTA 06/29/17 19:19 IMPRESSION: No pulmonary emboli. Basilar opacities similar to previous in 2016. Hepatic cysts stable. Assessment & Plan - Diagnosis (1) Acute and chronic respiratory failure with hypoxia Is this a current diagnosis for this admission?: Yes Plan: Stable. Patient reluctant to use BiPAP (2) COPD exacerbation Is this a current diagnosis for this admission?: Yes Plan: Continue down the legs, Spiriva, Advair and Zithromax. To discontinue steroids since leukocytosis. (3) Acute congestive heart failure Qualifiers: Congestive heart failure type: diastolic Qualified Code(s): I50.31 - Acute diastolic (congestive) heart failure Is this a current diagnosis for this admission?: Yes Plan: Continue Norvasc and to hold diuretic due to increased BUN. Will order a normal saline 500 mL bolus and will trend renal (4) Community acquired pneumonia Qualifiers: Laterality: unspecified laterality Qualified Code(s): J18.9 - Pneumonia, unspecified organism Is this a current diagnosis for this admission?: No Plan: Ruled out. Opacities demonstrated in chest x-ray are similar to [address] of the chest (5) Diabetes mellitus, type II Qualifiers: Diabetes mellitus complication status: with kidney complications Diabetes mellitus complication detail: with microalbuminuria Diabetes mellitus fdc insulin use: without fdc use Qualified Code(s): E11.29 - Type 2 diabetes mellitus with other diabetic kidney complication; R80.9 - Proteinuria, unspecified; R80.9 - Proteinuria, unspecified Is this a current diagnosis for this admission?: Yes Plan: Continue present management (6) Sleep apnea Qualifiers: Sleep apnea type: obstructive Qualified Code(s): G47.33 - Obstructive sleep apnea (adult) (pediatric) Is this a current diagnosis for this admission?: Yes Plan: Patient does not use CPAP and likely major contributor to his presentation (7) Hyperkalemia Is this a current diagnosis for this admission?: Yes Plan: Likely due to CHEMA inhibitor therapy. Resolved and to continue holding CHEMA inhibitor (8) Atelectasis of both lungs Is this a current diagnosis for this admission?: Yes Plan: Chronic finding backdated to 2016 (9) Elevated BUN Is this a current diagnosis for this admission?: Yes Plan: Hemoglobin has remained stable. Will order stool for occult blood. May be due to volume contraction and to order 500 mL's normal saline bolus. Will continue DVT prophylaxis since hemoglobin stable. Trend renal - Time Time Spent with patient: 15-24 minutes Medications reviewed and adjusted accordingly: Yes - Inpatient Certification Based on my medical assessment, after consideration of the patient's comorbidities, presenting symptoms, or acuity I expect that the services needed warrant INPATIENT care.: Yes I certify that my determination is in accordance with my understanding of Medicare's requirements for reasonable and necessary INPATIENT services [42 CFR 412.3e].: Yes Medical Necessity: Significant Comorbidiites Make Outpatient Treatment Too Risky , Need Close Monitoring Due to Risk of Patient Decompensation
[2017-07-02] MEDS ORDERED: TIOTROPIUM BROMIDE DPI 5 CAP/KIT (18 MCG/CAP) IH SCH (10:00)
[2017-07-02] MEDS: FLUTICASONE/SALMETEROL DISKUS 500-50 MCG/DOSE IH SCH ×2 (10:21→22:02)
[2017-07-02] MEDS: ROFLUMILAST 500 MCG TABLET PO SCH (10:22)
[2017-07-02] MEDS: GUAIFENESIN 600 MG TABLET.SA PO SCH ×2 (10:22→22:02)
[2017-07-02] MEDS: AMLODIPINE BESYLATE 2.5 MG TABLET PO SCH (10:23)
[2017-07-02] MEDS: CARVEDILOL 3.125 MG TABLET PO SCH ×2 (10:24→22:02)
[2017-07-02] MEDS: ENOXAPARIN SODIUM INJ 40 MG/0.4 ML DISP.SYRIN SUBCUT SCH (10:24)
[2017-07-02] MEDS: AZITHROMYCIN 250 MG TABLET PO SCH (17:17)
[2017-07-02] MEDS: ACETAMINOPHEN WITH CODEINE #3 TABLET PO PRN (23:11)
[2017-07-03 05:06] LABS: ABSOLUTE EOSINOPHILS # (AUTO) 0.1 10^3/uL (0.0-0.6); ABSOLUTE LYMPHOCYTES (AUTO) 2.5 10^3/uL (0.5-4.7); ABSOLUTE MONOCYTES (AUTO) 0.8 10^3/uL (0.1-1.4); ABSOLUTE NEUT (AUTO) 7.5 10^3/uL (1.7-8.2); BASOPHILS % (AUTO) 0.4 % (0-2); EOSINOPHILS % (AUTO) 0.5 % (0-6); HEMATOCRIT 37.6 % (37.9-51.0); HEMOGLOBIN 12.3 g/dL (13.5-17.0); LYMPHOCYTES % (AUTO) 22.7 % (13-45); MEAN CORPUSCULAR HEMOGLOBIN 29.4 pg (27.0-33.4); MEAN CORPUSCULAR HGB CONC 32.7 g/dL (32.0-36.0); MEAN CORPUSCULAR VOLUME 90 fl (80-97); MONOCYTES % (AUTO) 6.9 % (3-13); PLATELET COUNT 289 10^3/uL (150-450); RED BLOOD COUNT 4.18 10^6/uL (4.35-5.55); RED CELL DISTRIBUTION WIDTH 14.6 % (11.5-14.0); SEGMENTED NEUTROPHILS % (AUTO) 69.5 % (42-78); TOTAL CELLS COUNTED % (AUTO) 100 %; WHITE BLOOD COUNT 10.8 10^3/uL (4.0-10.5)
[2017-07-03] MEDS: GABAPENTIN 300 MG CAPSULE PO SCH (05:13)
[2017-07-03 05:25] LABS: ANION GAP 7 (5-19); BLOOD UREA NITROGEN 32 mg/dL (7-20); CALCIUM 8.9 mg/dL (8.4-10.2); CARBON DIOXIDE 36 mmol/L (22-30); CHLORIDE 100 mmol/L (98-107); GLUCOSE 83 mg/dL (75-110); MAGNESIUM 2.1 mg/dL (1.6-2.3); POTASSIUM 4.7 mmol/L (3.6-5.0)
[2017-07-03] MEDS ORDERED: LANSOPRAZOLE 15 MG TAB.RAP.DR PO SCH (06:00)
[2017-07-03 08:46] VITALS: BP 119/63
--- NOTE | 2017-07-03 15:33 | PDOC DISCHARGE SUMMARY ---
General - Admit/Disc Date/PCP Admission Date/Primary Care Provider: 06/29/17 21:46 Discharge Date: 07/03/17 - Discharge Diagnosis (1) Acute and chronic respiratory failure with hypoxia Is this a current diagnosis for this admission?: Yes (2) COPD exacerbation Is this a current diagnosis for this admission?: Yes (3) Community acquired pneumonia Is this a current diagnosis for this admission?: No (4) Diabetes mellitus, type II Is this a current diagnosis for this admission?: Yes (5) Sleep apnea Is this a current diagnosis for this admission?: Yes (6) Hyperkalemia Is this a current diagnosis for this admission?: Yes (7) Atelectasis of both lungs Is this a current diagnosis for this admission?: Yes (8) Elevated BUN Is this a current diagnosis for this admission?: Yes (9) Morbid obesity with BMI of 50.0-59.9, adult Is this a current diagnosis for this admission?: Yes (10) Non compliance with medical treatment Is this a current diagnosis for this admission?: Yes (11) Acute on chronic diastolic CHF (congestive heart failure) Is this a current diagnosis for this admission?: Yes - Additional Information Resuscitation Status: Full Code Discharge Diet: Cardiac Discharge Activity: Activity As Tolerated, Balance Activity w/Rest, Energy Conservation, Weigh Daily Prescriptions: Amlodipine Besylate [Norvasc 2.5 mg Tablet] 2.5 mg PO DAILY #30 tablet Guaifenesin [Mucinex Sr 600 mg Tablet.sa] 1,200 mg PO Q12 #60 tablet.sa Tiotropium Lennox [Spiriva Handihaler 5 Cap/Kit (18 Mcg/Cap)] 1 cap IH DAILY 30 Days #30 kit Home Medications: Amitriptyline HCl [Elavil 25 mg Tablet] 25 mg PO QHS 06/30/17 Budesonide/Formoterol Fumarate [Symbicort HFA 160-4.5 mcg Inhaler 6 gm] 1 puff IH Q12 06/30/17 Carvedilol [Coreg 3.125 mg Tablet] 3.125 mg PO Q12 06/30/17 Duloxetine HCl [Cymbalta] 60 mg PO DAILY 06/30/17 Furosemide [Lasix 40 mg Tablet] 90 mg PO DAILY 06/30/17 Gabapentin [Neurontin] 800 mg PO QID 06/30/17 Ipratropium/Albuterol Sulfate [Combivent Respimat 4 gm Mdi] 1 puff IH QID Metformin HCl [Metformin HCl ER] 500 mg PO DAILY 06/30/17 Omeprazole 20 mg PO DAILY 06/30/17 Amlodipine Besylate [Norvasc 2.5 mg Tablet] 2.5 mg PO DAILY #30 tablet 07/03/17 Guaifenesin [Mucinex Sr 600 mg Tablet.sa] 1,200 mg PO Q12 #60 tablet.sa Tiotropium Lennox [Spiriva Handihaler 5 Cap/Kit (18 Mcg/Cap)] 1 cap IH DAILY 30 Days #30 kit 07/03/17 History of Present Illness History of Present Illness: DOLORES TOMAS is a 56 year old male with a past medical history of chronic hypoxemic respiratory failure, congestive heart failure, COPD, hypertension, diabetes mellitus type 2 diet controlled, morbid obesity who presents to the emergency department with shortness of breath. Patient reports she has been to his primary provider 3 times this week for congestion and difficulty breathing. He reports that he was placed on an antibiotic and given steroids in the form shots, but he reveals he is getting worse. He reports his sputum is productive of yellow white sputum. He reports that he has lower extremity swelling but no more than normal. He does report that overall his weight is up since last seen approximately [address] in the emergency department reveals no pulmonary embolus but there was a concern for a pneumonia by ED physician. Patient was admitted under the hospitalist service for further management Hospital Course Hospital Course: Patient was admitted under the hospitalist service. Since he presented with hypoxemia he was placed on BiPAP which had to be discontinued since he continuously refused this modality of treatment. He was placed on nebulizer treatments which then had to be changed to LABA and Spiriva as he refused such treatments. Initial concern of pneumonia was ruled out since previous CT scan dating to 2016 showed similar findings of bilateral atelectasis. Likely this related to poor inspiratory effort and probably a pickwickian component. Renal function was trended and noted an increase in potassium level. We discontinued lisinopril which had been started on admission. It responded to Kayexalate. We added Norvasc for hypertension management. Recommend primary care provider to follow-up in this regard as he may need some further adjustment. Patient does have a component of chronic diastolic congestive heart failure and is of utmost importance blood pressure control. It is my personal opinion that patient will sustain frequent admissions under similar circumstances since sleep apnea is currently not treated even though patient has been prescribed CPAP. Diabetes remained stable while hospitalized. Since patient had achieved maximum benefitOf hospitalization stay prompted to discharge under stable condition Physical Exam Vital Signs: Temp Pulse Resp BP Pulse Ox 97.4 F 75 18 131/80 H 92 07/02/17 23:34 07/02/17 23:34 07/02/17 23:34 07/02/17 23:34 07/02/17 23:34 Intake & Output 07/02/17 07/03/17 07/04/17 06:59 06:59 06:59 Intake Total 1142 4437 Balance 1142 4437 Weight 168.1 kg 168 kg General appearance: PRESENT: no acute distress, morbidly obese Head exam: PRESENT: atraumatic, normocephalic Eye exam: PRESENT: EOMI, PERRLA Ear exam: PRESENT: normal external ear exam, TM's normal bilaterally Mouth exam: PRESENT: moist, neck supple Neck exam: PRESENT: full ROM. ABSENT: JVD, lymphadenopathy, tenderness Respiratory exam: PRESENT: clear to auscultation benito Cardiovascular exam: PRESENT: RRR. ABSENT: diastolic murmur, systolic murmur Vascular exam: PRESENT: normal capillary refill GI/Abdominal exam: PRESENT: normal bowel sounds, soft. ABSENT: guarding, tenderness Extremities exam: PRESENT: full ROM, +1 edema. ABSENT: joint swelling Musculoskeletal exam: PRESENT: ambulatory Neurological exam: PRESENT: alert, awake, oriented to person, oriented to place , oriented to time Psychiatric exam: PRESENT: appropriate affect, normal mood Skin exam: PRESENT: intact, normal color Results Laboratory Results: 07/03/17 03:58 07/03/17 03:58 07/02/17 07/03/17 07/03/17 20:40 03:58 03:58 WBC 10.8 H RBC 4.18 L Hgb 12.3 L Hct 37.6 L MCV 90 MCH 29.4 MCHC 32.7 RDW 14.6 H Plt Count 289 Seg Neutrophils % 69.5 Lymphocytes % 22.7 Monocytes % 6.9 Eosinophils % 0.5 Basophils % 0.4 Absolute Neutrophils 7.5 Absolute Lymphocytes 2.5 Absolute Monocytes 0.8 Absolute Eosinophils 0.1 Absolute Basophils 0.0 Sodium 143.0 Potassium 4.7 Chloride 100 Carbon Dioxide 36 H Anion Gap 7 BUN 32 H Creatinine 0.89 Est GFR ( Amer) > 60 Est GFR (Non-Af Amer) > 60 Glucose 83 Calcium 8.9 Magnesium 2.1 Stool Occult Blood NEGATIVE 06/30/17 18:24 Sputum Gram Stain - Final 06/30/17 18:24 Sputum Sputum Culture - Final Yeast, Not Zoie Albicans Normal Shante Impressions: Chest X-Ray 06/29/17 16:54 IMPRESSION: Atelectasis. Chest/Abdomen CTA 06/29/17 19:19 IMPRESSION: No pulmonary emboli. Basilar opacities similar to previous in 2016. Hepatic cysts stable. Plan Discharge Plan: Discharge home Time Spent: Less than 30 Minutes
== END 2017-07-03 09:20 | disposition home or self-care (01) | DRG 189 ==
LOC: ER 15:12 → EH 21:46 → 5 06-30 15:09
PROVIDERS: ADMIT Family Medicine; ATTEND Family Medicine
PROC: 5A09357 Assistance with Respiratory Ventilation, Less than 24 Consecutive Hours, Continuous Positive Airway Pressure (ICD-10-PCS; principal; 2017-06-29)
DX: J96.21 Acute and chronic respiratory failure with hypoxia (principal); J18.9 Pneumonia, unspecified organism; I50.33 Acute on chronic diastolic (congestive) heart failure; J44.1 Chronic obstructive pulmonary disease with (acute) exacerbation; J44.0 Chronic obstructive pulmonary disease with (acute) lower respiratory infection; J98.11 Atelectasis; Z68.43 Body mass index [BMI] 50.0-59.9, adult; I11.0 Hypertensive heart disease with heart failure; E87.5 Hyperkalemia; E11.29 Type 2 diabetes mellitus with other diabetic kidney complication; E78.5 Hyperlipidemia, unspecified; G47.30 Sleep apnea, unspecified; E66.01 Morbid (severe) obesity due to excess calories; Z79.84 Long term (current) use of oral hypoglycemic drugs; Z79.899 Other long term (current) drug therapy; Z91.19 Patient's noncompliance with other medical treatment and regimen; Z87.891 Personal history of nicotine dependence
CPT/HCPCS: 36415; 71045; 71275; 80048; 80053; 81001; 82272; 83605; 83735; 83880; 84484; 85025; 87040; 87070; 87205; 87804; 93005; 93010; 94640; 94660; 94799; 96365; 96367; 96375; 99285; J0456; J0696; J1650; J1940; J2920; J2930; J3490; J7040; J7512; J7620